=== PATIENT | male | born 1970 | race Caucasian/White ===

== ENCOUNTER 2020-11-08 11:48 | Outpatient (REF) | payer OTHER, SELFPAY | END 2020-11-08 11:49 | disposition home or self-care (01) | LOC: HO.WFDLDS 11:48 | PROVIDERS: Visit Provider Internal Medicine | DX: Z20.828 Contact with and (suspected) exposure to other viral communicable diseases (principal) | CPT/HCPCS: 36415; C9803; U0003 ==

== ENCOUNTER 2024-07-25 13:57 | Outpatient (AMB) | payer OTHER, SELFPAY ==
--- NOTE | 2024-07-25 14:06 | MHC.PC.OV ---
Vital Signs 07/25/24 14:19 Height 5 ft 7.32 in Weight 219 lb 8 oz BMI 34.0 BP 110/74 Blood Pressure Location Rt brachial Position Sitting Respiration 16 Pulse 67 Pulse Source Pulse Oximeter Pulse Oximetry (%) 97 Oxygen Delivery Method Room Air Intake Visit Reasons: Transfer Care from [facility] Intake Note: New patient visit Allergies No Known Allergies Allergy (Verified 07/25/24 14:07) Tobacco use date assessed: 07/25/24 Dental Screening Dental Screen Date: 07/25/24 Did you have a dental visit in the last 12 months?: No Did you have a dental problem in the last 6 months where you did not have access to dental care?: No Was dental information given to patient?: Patient has dentist HPI HPI Comments History of Present Illness Details The patient is a 54-year-old male with a past medical history of psoriasis, polyarthralgia, stress, ED, sleep disorder presenting for follow-up Psoriasis: He was on sotyktu. He then restarted skyrizi. He follows with [facility] Polyarthralgia: Stable. He did injure his ankle last year and saw a [facility]. He has chronic right shoulder pain without injury. It hurts with overhead throwing, abduction, internal rotation. It worsened last year. His hand and fingers were hurting bilaterally. Also complained of chronic bilateral knee pain right over left, right ankle pain. He had not noticed any redness or swelling. He has low back pain which is worse with rotation to much lifting and exercise. CV: He was hesitant to start cholesterol medication. He lost weight and was exercising last year until he injured his ankle. History of low testosterone. On 100 mg sildenafil which is effective for him Colonoscopy 2022 at [facility] CONSTITUTIONAL: Denies weight loss, fever and chills. HEENT: Denies changes in vision and hearing. RESPIRATORY: Denies SOB and cough. CV: Denies palpitations and CP GI: Denies abdominal pain, nausea, vomiting and diarrhea. : Denies dysuria and urinary frequency. MSK: see HPI SKIN: Denies rash and pruritus. NEUROLOGICAL: Denies headache PSYCHIATRIC: Denies recent changes in mood. PHYSICAL EXAM: GENERAL: Alert and oriented x 3. NAD EYES: EOMI. Anicteric. HENT: Moist mucous membranes. No scleral icterus. No cervical lymphadenopathy. LUNGS: Clear to auscultation bilaterally. CARDIOVASCULAR: Regular rate and rhythm. ABDOMEN: Soft, non-tender +bs EXTREMITIES: No edema. Non-tender. SKIN: No rashes or lesions. Warm. NEUROLOGIC: No focal neurological deficits. CN II-XII grossly intact PSYCHIATRIC: Cooperative. Appropriate mood and affect FOR[facility], [facility] Medical History (Updated 07/30/24 @ 10:20 by Shaneka Mitchell MD) ACL (anterior cruciate ligament) tear Stress Sleep disorder Psoriasis Polyarthralgia Obesity, Class I, BMI 30-34.9 Hyperlipemia Erectile dysfunction Surgical History (Updated 07/25/24 @ 14:12 by Ca Vincent CMA) History of colonoscopy Family History (Updated 07/25/24 @ 14:13 by Ca Vincent CMA) Mother Cancer of colon Father Lung cancer Maternal Grandmother Alzheimer dementia Heart disease Paternal Grandmother Alzheimer dementia Social History Housing: House Patient Tobacco Use Status: Never used Tobacco e-Cigarette/Vaping Use: Never Used Second Hand Smoke Exposure: No service: No Current occupational status: employed Current occupation: self employed Current occupational exposures/hazards: No Cognitive needs: No Hearing needs: No Vision needs: Yes (reading glasses) Questionnaire PHQ-9 Over the last 2 weeks, how often have you been bothered by any of the following problems? 1. Little interest or pleasure in doing things: not at all 2. Feeling down, depressed, or hopeless: not at all 3. Trouble falling or staying asleep, or sleeping too much: several days 4. Feeling tired or having little energy: several days 5. Poor appetite or overeating: not at all 6. Feeling bad about yourself - or that you are a failure or have let yourself or your family down: not at all 7. Trouble concentrating on things, such as reading the newspaper or watching television: not at all 8. Moving or speaking so slowly that other people could have noticed. Or the opposite - being so fidgety or restless that you have been moving around a lot more than usual: not at all 9. Thoughts that you would be better off or of hurting yourself in some way: not at all Total score: 2 Depression Screening Interpretation: Positive Depression Screening Done: Yes 33724 - PHQ-9 Billing: Yes Source: Developed by Drs. Dimitrios Navarro, Ana Stewart, Silviano Mcpherson and colleagues, with an educational wood from [employer]. Thrive Questionnaire Date Thrive assessed: 07/25/24 I am a: Patient What is your living situation today?: I have a steady place to live Within the past 12 months, did the food you bought not last and you didn't have the money to get more?: Sometimes True Within the past 12 months, did you worry whether your food would run out before you got money to buy more?: I choose not to answer this question Do you have trouble paying for medicines?: I choose not to answer this question Do you have trouble getting transportation to medical appointments?: No Do you have trouble paying your heating and electricity bill?: I choose not to answer this question Do you have trouble taking care of your child, family member or friend?: No Do you have trouble with day-to-day activities such as bathing, preparing meals, shopping, managing finances, etc.?: No Are you currently unemployed and looking for a job?: No Are you interested in more education?: No Please select the resources that you would like help with: None Currently or been in a relationship where the following occur: I choose not to answer THRIVE Score: 1 AUDIT C Alcohol Use Questionnaire (AUDIT-C) 1. How often do you have a drink containing alcohol?: 2-4 times a month 2. How many drinks containing alcohol do you have on a typical day when you are drinking?: 1 or 2 3. How often do you have six or more drinks on one occasion?: Never Total Score: 2 CORWIN-7 AMB Questionnaire CORWIN-7 Date CORWIN - 7 assessed: 07/25/24 Feeling nervous, anxious, or on edge: 0 = Not at all Not being able to stop or control worryin = Not at all Worrying too much about different things: 1 = Several days Trouble relaxin = Several days Being so restless that it is hard to sit still: 0 = Not at all Becoming easily annoyed or irritable: 0 = Not at all Feeling afraid as if something awful might happen: 0 = Not at all Total CORWIN-7 score (0-4 normal; 5-9 mild; 10-14 moderate; 15-21 severe): 2 Source: Developed by Dennis Betancuret B.W. Terry, Silviano Mcpherson and colleagues, with an educational wood from [employer]. CORWIN-7 Assessment Billing CORWIN-7 Assessment Tool: CORWIN-7 Assessment 97069 Physical exam (Primary Care) Vital Signs: Last Vital Signs Pulse 67 07/25/24 14:19 Resp 16 07/25/24 14:19 BP 110/74 07/25/24 14:19 Pulse Ox 97 07/25/24 14:19 Oxygen Delivery Method Room Air 07/25/24 14:19 BMI result Body Mass Index 34.0 Tobacco/Smoking Status: Tobacco use Status Tobacco use date assessed 07/25/24 07/25/24 14:16 Patient Tobacco Use Status Never used Tobacco 07/25/24 14:16 e-Cigarette/Vaping Use Never Used 07/25/24 14:16 PHQ-9: PHQ-9 Score PHQ-9: Total score 2 07/30/24 10:17 Depression Screening Interpretation: Positive Thrive Assessment: Date of Thrive Assessment Date Thrive assessed 07/25/24 07/25/24 14:16 Currently or been in a relationship where the following occur: I choose not to answer Assessment and Plan Assessment & Plan (1) Psoriasis: Code(s): L40.9 - Psoriasis, unspecified Plan: continue dermatology follow up (2) Polyarthralgia: Code(s): M25.50 - Pain in unspecified joint Plan: Referral to rheumatology for evaluation (3) Right ankle pain: Code(s): M25.571 - Pain in right ankle and joints of right foot Qualifiers: Chronicity: chronic Qualified Code(s): M25.571 - Pain in right ankle and joints of right foot; G89.29 - Other chronic pain Plan: Referral to ortho. Apply topical voltaren Orders: Orders HLA B27 07/28/24 L40.9 - Psoriasis, unspecified, M25.50 - Pain in unspecified joint, M25.571 - Pain in right ankle and joints of right foot Comprehensive Met. Panel 07/28/24 L40.9 - Psoriasis, unspecified, M25.50 - Pain in unspecified joint, M25.571 - Pain in right ankle and joints of right foot Erythrocyte Sedimentation Rate 07/28/24 L40.9 - Psoriasis, unspecified, M25.50 - Pain in unspecified joint, M25.571 - Pain in right ankle and joints of right foot Complete Blood Count Auto Diff 07/28/24 L40.9 - Psoriasis, unspecified, M25.50 - Pain in unspecified joint, M25.571 - Pain in right ankle and joints of right foot Referrals Dermatology Referral L40.9 - Psoriasis, unspecified, M25.50 - Pain in unspecified joint, M25.571 - Pain in right ankle and joints of right foot Rheumatology Referral L40.9 - Psoriasis, unspecified, M25.50 - Pain in unspecified joint, M25.571 - Pain in right ankle and joints of right foot Orthopedics Referral M25.571 - Pain in right ankle and joints of right foot Medications: New diclofenac sodium 1% apply to single knee, ankle, foot; for foot includes sole/toes/top of foot 4 grams topical QID 100 grams 0RF Coding Level of Care Code Est Pt Level 4 (01493) Complex EM visit Add On G2211 Diagnoses Psoriasis L40.9 Polyarthralgia M25.50 Chronic pain of right ankle M25.571; G89.29 Chronicity: chronic Additional Codes CORWIN-7 Assessment Billing - CORWIN-7 Assessment Tool: CORWIN-7 Assessment 56374 ([id number])
[2024-07-25 14:19] VITALS: BP 110/74; PULSE 67; RESP 16; O2SAT 97; BMI 34.0
== END 2024-07-25 14:54 | disposition home or self-care (01) ==
PROVIDERS: PCP Internal Medicine; Visit Provider Internal Medicine
DX: L40.9 Psoriasis, unspecified (principal); M25.50 Pain in unspecified joint; M25.571 Pain in right ankle and joints of right foot; G89.29 Other chronic pain

== ENCOUNTER → 2024-07-25 13:57 | Outpatient (BNVA) | payer OTHER, SELFPAY | PROVIDERS: PCP Internal Medicine; Visit Provider Internal Medicine | DX: L40.9 Psoriasis, unspecified (principal); M25.50 Pain in unspecified joint; G89.29 Other chronic pain; M25.571 Pain in right ankle and joints of right foot | CPT/HCPCS: 96127 ==

== ENCOUNTER 2024-07-28 11:12 | Outpatient (REF) | payer OTHER, SELFPAY ==
[2024-07-28 14:15] LABS: MANUAL DIFF FLAG NO
[2024-07-28 14:18] LABS: Basophils Percent Auto 0.7 % (0-2); Eosinophils Absolute Auto 0.2 X10*3/uL (0.0-0.4); Eosinophils Percent Auto 2.6 % (0-4); Hematocrit 44.5 % (42.0-52.0); Hemoglobin 15.3 g/dl (14.0-18.0); Imm Gran Abs Auto 0.02 X10*3/uL (0.00-0.03); Imm Gran Pct Auto 0.3 % (0.0-0.4); Lymphocytes Absolute Auto 1.8 X10*3/uL (1.2-4.9); Lymphocytes Percent Auto 31.3 % (20-40); Mean Corpuscular HGB Conc 34.4 g/dl (31.0-36.0); Mean Corpuscular Volume 84.3 fL (80.0-98.0); Mean Platelet Volume 9.4 fL (9.4-12.4); Monocytes Absolute Auto 0.4 X10*3/uL (0.1-1.2); Monocytes Percent Auto 6.8 % (2-11); Neutrophils Absolute Auto 3.4 x10*3/uL (2.0-8.3); Neutrophils Percent Auto 58.3 % (45-73); Platelet Count 276 X10*3/uL (160-400); Red Blood Count 5.28 X10*6/uL (4.60-5.80); Red Cell Distribution Width 13.2 % (11.0-16.0); White Blood Count 5.9 X10*3/uL (4.8-10.8)
[2024-07-28 14:44] LABS: Erythrocyte Sedimentation Rate 4 MM/HR (0-15)
[2024-07-28 14:49] LABS: Alanine Aminotransferase 29 U/L (0-40); Albumin Level 4.2 g/dL (3.5-5.0); Alkaline Phosphatase 71 U/L (39-117); Anion Gap 13 (12-20); Aspartate Amino Transferase 22 U/L (5-37); Bilirubin Total 0.7 mg/dL (0.0-1.0); Blood Urea Nitrogen 10 mg/dL (9-16); Calcium 9.5 mg/dL (8.4-10.2); Carbon Dioxide 26 mmol/L (22-29); Chloride 105 mmol/L (96-108); Estimated Glomerular Filt Rate > 60; Glucose Random 113 mg/dL (60-115); Potassium 4.2 mmol/L (3.3-5.1); Sodium 140 mmol/L (135-145); Total Protein 7.4 g/dL (6.5-8.0)
[2024-08-03 21:59] LABS: HLA B27 Negative (Negative)
== END 2024-07-28 11:13 | disposition home or self-care (01) ==
LOC: HO.WFDLDS 11:12
PROVIDERS: Visit Provider Internal Medicine
DX: M25.571 Pain in right ankle and joints of right foot (principal); M25.50 Pain in unspecified joint; L40.9 Psoriasis, unspecified
CPT/HCPCS: 36415; 80053; 85025; 85652; 86812

== ENCOUNTER 2024-09-15 14:50 | Outpatient (AMB) | payer OTHER, SELFPAY ==
[2024-09-15 14:53] VITALS: BP 112/64; BMI 34.3
--- NOTE | 2024-09-15 14:53 | MHC.OFFVIS ---
Vital Signs 09/15/24 14:53 Height 5 ft 7.32 in Weight 221 lb 5.506 oz BMI 34.3 BP 112/64 Blood Pressure Location Lt brachial Position Sitting Intake Visit Reasons: Joint pain/CM Intake Note: Patient presents today with joint pain, internally referred by PCP, Shaneka Mitchell. Allergies No Known Allergies Allergy (Verified 09/15/24 14:55) HPI Comments Details: Patient is a 54-year-old male with psoriasis currently on rizankizumab (IL 23 inhibitor) who is here for evaluation of right ankle pain. 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 The pain was noted on the lateral and medial aspects of his ankle. He denies involvement of any other joint. No prolonged morning stiffness. No dactylitis. No Achilles heel inflammation or enthesitis. No enthesitis involving other entheseal sites. No inflammatory type back pain. He says recently he changed his shoes and added orthotics as as well as got a cushion for his chair and he has noticed improvement in his ankle pain. With respect to his psoriasis he is currently on rizankizumab which is improving his psoriasis. [facility] Medical History (Updated 07/30/24 @ 10:20 by Shaneka Mitchell MD) ACL (anterior cruciate ligament) tear Stress Sleep disorder Psoriasis Polyarthralgia Obesity, Class I, BMI 30-34.9 Hyperlipemia Erectile dysfunction Surgical History (Updated 07/25/24 @ 14:12 by Ca Vincent CMA) History of colonoscopy Family History (Updated 07/25/24 @ 14:13 by Ca Vincent CMA) Mother Cancer of colon Father Lung cancer Maternal Grandmother Alzheimer dementia Heart disease Paternal Grandmother Alzheimer dementia Social History Housing: House Patient Tobacco Use Status: Never used Tobacco e-Cigarette/Vaping Use: Never Used Second Hand Smoke Exposure: No service: No Current occupational status: employed Current occupation: self employed Current occupational exposures/hazards: No Cognitive needs: No Hearing needs: No Vision needs: Yes (reading glasses) Review of Systems Const Details: Review of Systems Constitutional: Denies fever, chills, weight loss ENT: Denies vision changes, eye pain or eye redness, dental caries, dry mouth GI: Denies nausea, vomiting, diarrhea, abdominal pain, change in BM Pulm: Denies SOB, WAGONER, hemoptysis, wheezing Cards: Denies chest pain, palpitations Skin: Denies Raynaud's, rash, nail changes, photosensitivity, [employer]: Denies headaches, weakness, paresthesias, recurrent falls MSK: as per HPI All other systems reviewed and are unremarkable except noted above Physical Exam Vital Signs: Last Vital Signs BP 112/64 09/15/24 14:53 BMI result Body Mass Index 34.3 Physical Examination CONSTITUITIONAL Patient alert and cooperative. Well appearing and in no apparent painful distress HEENT Conjunctiva and sclera clear. ?Pupils equal round and reactive to light. ?No lymphadenopathy. ?Normal dentition. No oral or nasal ulcers noted. No evidence of discoid rash to the diane of ears CHEST/RESPIRATORY SYSTEM Normal respiratory effort and able to speak in complete sentences. ?Clear to auscultation bilaterally. ?No crackles, rales, rhonchi, wheezes heard. CARDIAC SYSTEM Regular rate and rhythm. ?S1 and S2 heard no murmurs. ?Radial pulses intact bilaterally MSK Hands: ?Good field assessor strength bilaterally - 5/5. ?No deformities noted. ?No synovitis noted to the MCPs, PIPs or DIPs. ?No tenderness to palpation of these joints. Wrists: ?Full range of motion at the wrists without pain. ?No tenderness to palpation or synovitis noted to the wrists. Elbows: Full range of motion without pain. No tenderness, weakness, swelling, increased warmth or erythema. Shoulders: Full range of motion without pain. No tenderness, weakness, swelling, increased warmth or erythema. Knees: ?Full range of motion. ?No tenderness, swelling, increased warmth or erythema.?No effusion or crepitations Ankles: Full range of motion. ?No tenderness, swelling, increased warmth or erythema.? Feet: ?Negative squeeze test. ?No tenderness to palpation or swelling of the MTPs. SKIN Skin intact without rashes. Results Reviewed Results Reviewed: Laboratory Tests 07/28/24 11:13 HLA-B27 Negative Assessment & Plan Assessment & Plan (1) Right ankle pain: Code(s): M25.571 - Pain in right ankle and joints of right foot Category: Medical Qualifiers: Chronicity: chronic Qualified Code(s): M25.571 - Pain in right ankle and joints of right foot; G89.29 - Other chronic pain Plan: #Right ankle Pain Patient with right ankle pain on a background of psoriasis. I believe that this ankle pain is not due to psoriatic arthritis and more related to a soft tissue rheumatism which will improve with rest and over time. He does not have any symptoms at this time concerning for psoriatic arthritis but I explained to him that about 20% of patients with psoriasis can develop psoriatic arthritis and I also explained the symptoms for him to monitor for. No further investigations required at this time. (2) Psoriasis: Code(s): L40.9 - Psoriasis, unspecified Category: Medical Plan: #Psoriasis Patient can continue his IL 23 inhibitor. No psoriatic plaques noted on examination. Plan I spent 30 minutes reviewing the record and labs, seeing the patient, discussing the treatment plan and documenting in the medical record ? Coding Level of Care Code New Pt Level 3 (17398) Complex EM visit Add On G2211 Diagnoses Chronic pain of right ankle M25.571; G89.29 Chronicity: chronic Psoriasis L40.9
== END 2024-09-15 15:24 | disposition home or self-care (01) ==
PROVIDERS: PCP Internal Medicine; Visit Provider Student in an Organized Health Care Education/Training Program
DX: M25.571 Pain in right ankle and joints of right foot (principal); G89.29 Other chronic pain; L40.9 Psoriasis, unspecified
CPT/HCPCS: 99203

== ENCOUNTER 2025-02-26 08:24 | Outpatient (AMB) | payer OTHER, SELFPAY ==
--- NOTE | 2025-02-26 08:34 | A.OFFPC_ITS ---
Vital Signs 02/26/25 08:36 Height 5 ft 7.32 in Weight 217 lb 4 oz BMI 33.7 BP 118/86 Blood Pressure Location Lt brachial Position Sitting Respiration 14 Pulse 78 Pulse Source Pulse Oximeter Pulse Oximetry (%) 94 Oxygen Delivery Method Room Air Intake Visit Reasons: Physical Exam Intake Note: Physical Ride Attendant Required: No Allergies No Known Allergies Allergy (Verified 02/26/25 08:35) Tobacco use date assessed: 02/26/25 Dental Screening Dental Screen Date: 02/26/25 Did you have a dental visit in the last 12 months?: No Did you have a dental problem in the last 6 months where you did not have access to dental care?: Yes Was dental information given to patient?: Patient has dentist HPI HPI Comments History of Present Illness Details The patient is a 55-year-old male with a past medical history of psoriasis, polyarthralgia, stress, ED, sleep disorder presenting for CPE Psoriasis: He is on skyrizi. He follows with [facility] Polyarthralgia: Stable. He has chronic right shoulder pain without injury. It hurts with overhead throwing, abduction, internal rotation. It worsened last year. His hand and fingers were hurting bilaterally. Also complained of chronic bilateral knee pain right over left, right ankle pain. He had not noticed any redness or swelling. He has low back pain which is worse with rotation to much lifting and exercise. Saw rheumatology thought that OA CV: He was hesitant to start cholesterol medication. He is due for lipids History of low testosterone. On 100 mg sildenafil which is effective for him Colonoscopy 2022 at [facility]. He has a family history of colon cancer ROS CONSTITUTIONAL: Denies weight loss, fever and chills. HEENT: Denies changes in vision and hearing. RESPIRATORY: Denies SOB and cough. CV: Denies palpitations and CP GI: Denies abdominal pain, nausea, vomiting and diarrhea. : Denies dysuria and urinary frequency. MSK: see HPI SKIN: Denies rash and pruritus. NEUROLOGICAL: Denies headache PSYCHIATRIC: Denies recent changes in mood. PHYSICAL EXAM: GENERAL: Alert and oriented x 3. NAD EYES: EOMI. Anicteric. HENT: Moist mucous membranes. No scleral icterus. No cervical lymphadenopathy. LUNGS: Clear to auscultation bilaterally. CARDIOVASCULAR: Regular rate and rhythm. ABDOMEN: Soft, non-tender +bs : Normal penis and testes EXTREMITIES: No edema. Non-tender. SKIN: No rashes or lesions. Warm. NEUROLOGIC: No focal neurological deficits. CN II-XII grossly intact PSYCHIATRIC: Cooperative. Appropriate mood and affect [facility] Medical History ACL (anterior cruciate ligament) tear Stress Sleep disorder Psoriasis Polyarthralgia Obesity, Class I, BMI 30-34.9 Hyperlipemia Erectile dysfunction Surgical History History of colonoscopy Family History Mother Cancer of colon Father Lung cancer Maternal Grandmother Alzheimer dementia Heart disease Paternal Grandmother Alzheimer dementia Social History Housing: House Alcohol intake: current Patient Tobacco Use Status: Never used Tobacco e-Cigarette/Vaping Use: Never Used Second Hand Smoke Exposure: No service: No Current occupational status: employed Current occupation: self employed Current occupational exposures/hazards: No Cognitive needs: No Hearing needs: No Vision needs: Yes (reading glasses) Questionnaire PHQ-9 Over the last 2 weeks, how often have you been bothered by any of the following problems? 1. Little interest or pleasure in doing things: not at all 2. Feeling down, depressed, or hopeless: not at all 3. Trouble falling or staying asleep, or sleeping too much: not at all 4. Feeling tired or having little energy: not at all 5. Poor appetite or overeating: not at all 6. Feeling bad about yourself - or that you are a failure or have let yourself or your family down: not at all 7. Trouble concentrating on things, such as reading the newspaper or watching television: not at all 8. Moving or speaking so slowly that other people could have noticed. Or the opposite - being so fidgety or restless that you have been moving around a lot more than usual: not at all 9. Thoughts that you would be better off or of hurting yourself in some way: not at all Total score: 0 Depression Screening Interpretation: Negative Depression Screening Done: Yes 73284 - PHQ-9 Billing: Yes Source: Developed by Drs. Dimitrios Navarro, Ana Stewart, Silviano Mcpherson and colleagues, with an educational wood from [employer]. Thrive Questionnaire Date Thrive assessed: 02/19/25 I am a: Patient What is your living situation today?: I choose not to answer this question Within the past 12 months, did the food you bought not last and you didn't have the money to get more?: I choose not to answer this question Within the past 12 months, did you worry whether your food would run out before you got money to buy more?: I choose not to answer this question Do you have trouble paying for medicines?: I choose not to answer this question Do you have trouble getting transportation to medical appointments?: I choose not to answer this question Do you have trouble paying your heating and electricity bill?: I choose not to answer this question Do you have trouble taking care of your child, family member or friend?: I choose not to answer this question Do you have trouble with day-to-day activities such as bathing, preparing meals, shopping, managing finances, etc.?: I choose not to answer this question Are you currently unemployed and looking for a job?: I choose not to answer this question Are you interested in more education?: I choose not to answer this question Please select the resources that you would like help with: None Currently or been in a relationship where the following occur: I choose not to answer THRIVE Score: 0 AUDIT C Alcohol Use Questionnaire (AUDIT-C) 1. How often do you have a drink containing alcohol?: 2-4 times a month 2. How many drinks containing alcohol do you have on a typical day when you are drinking?: 1 or 2 3. How often do you have six or more drinks on one occasion?: Never Total Score: 2 CORWIN-7 AMB Questionnaire CORWIN-7 Date CORWIN - 7 assessed: 02/26/25 Feeling nervous, anxious, or on edge: 0 = Not at all Not being able to stop or control worryin = Not at all Worrying too much about different things: 0 = Not at all Trouble relaxin = Not at all Being so restless that it is hard to sit still: 0 = Not at all Becoming easily annoyed or irritable: 0 = Not at all Feeling afraid as if something awful might happen: 0 = Not at all Total CORWIN-7 score (0-4 normal; 5-9 mild; 10-14 moderate; 15-21 severe): 0 Source: Developed by Drs. Dimitrios Navarro, Ana Stewart, Silviano Mcpherson and colleagues, with an educational wood from [employer]. CORWIN-7 Assessment Billing CORWIN-7 Assessment Tool: CORWIN-7 Assessment 41115 Physical exam (Primary Care) Vital Signs: Last Vital Signs Pulse 78 02/26/25 08:36 Resp 14 02/26/25 08:36 BP 118/86 02/26/25 08:36 Pulse Ox 94 02/26/25 08:36 Oxygen Delivery Method Room Air 02/26/25 08:36 BMI result Body Mass Index 33.7 Tobacco/Smoking Status: Tobacco use Status Tobacco use date assessed 02/26/25 02/26/25 08:35 Patient Tobacco Use Status Never used Tobacco 02/26/25 08:39 e-Cigarette/Vaping Use Never Used 02/26/25 08:39 PHQ-9: PHQ-9 Score PHQ-9: Total score 0 02/26/25 08:43 Depression Screening Interpretation: Negative Thrive Assessment: Date of Thrive Assessment Date Thrive assessed 02/19/25 02/26/25 08:35 Currently or been in a relationship where the following occur: I choose not to answer Coding Level of Care Code Est Pt Prev Care 40-64y(65035) Diagnoses Physical exam Z00.00 Erectile dysfunction, unspecified erectile dysfunction type N52.9 Erectile dysfunction type: unspecified Hyperlipidemia, unspecified hyperlipidemia type E78.5 Hyperlipidemia type: unspecified Psoriasis L40.9 Additional Codes CORWIN-7 Assessment Billing - CORWIN-7 Assessment Tool: CORWIN-7 Assessment 34494 ([id number]) PHQ-9 - 87319 - PHQ-9 Billing: Yes ([id number]) Assessment & Plan Assessment & Plan (1) Physical exam: Code(s): Z00.00 - Encounter for general adult medical examination without abnormal findings Category: Medical (2) Erectile dysfunction: Code(s): N52.9 - Male erectile dysfunction, unspecified Category: Medical Qualifiers: Erectile dysfunction type: unspecified Qualified Code(s): N52.9 - Male erectile dysfunction, unspecified (3) Hyperlipemia: Code(s): E78.5 - Hyperlipidemia, unspecified Category: Medical Qualifiers: Hyperlipidemia type: unspecified Qualified Code(s): E78.5 - Hyperlipidemia, unspecified (4) Psoriasis: Code(s): L40.9 - Psoriasis, unspecified Category: Medical Plan CPE-preventive measures for age discussed. UTD Hyperlipidemia-check lipids ED is stable on prn viagra Orders: Orders Testosterone, Free/Total Today N52.9 - Male erectile dysfunction, unspecified Lipid Panel Today E78.5 - Hyperlipidemia, unspecified Medications: New sildenafil (Viagra) administer 30 minutes to 4 hours before activity 100 mg PO DAILY PRN 30 tabs 3RF sexual activity
[2025-02-26 08:36] VITALS: BP 118/86; PULSE 78; RESP 14; O2SAT 94; BMI 33.7
--- OUTSIDE RECORDS SUMMARY | 2025-02-26 08:46 | XMS_ITS | Clinical Summary ---
Author Organization [employer] Address [address] [place] [address] [address] [place] [address] Care Team Providers Care Director Of Consumer Affairs Name Role Phone Unavailable Primary Care Provider Unavailabl e Allergies No known active allergies Medications Deucravacitinib (SOTYKTU PO) Take by mouth. Active Social History Tobacco Use Types Packs/Day Years Used Date Smoking Tobacco: Never Tobacco Cessation:Counseling Given: Not Answered Sex and Gender Information Value Date Recorded Sex Assigned at Male 09/16/2022 3:51 PM EST Legal Sex Male 3:28 PM EST Gender Identity Male 09/16/2022 3:51 PM EST Sexual Orientation Straight 09/16/2022 3: 51 PM EST Last Filed Vital Signs Vital Sign Reading Time Taken Comments Blood Pressure 120/82 10/13/2022 10:52 AM EST Pulse - - Temperature 36.2 ??C (97.2 ??F) 10/13/2022 10:[address] Respiratory Rate - - Oxygen Saturation - - Inhaled Oxygen Concentration - - Weight - - Height - - Body Mass Index - - Plan of Treatment Health Maintenance Due Date Last Done Comments CT Colonography 1969 Colonoscopy 1969 Colorectal Cancer Screening 1969 Depression Screening 1969 FIT DNA/Cologuard 1969 FIT 1969 FOBT 1969 HIV Screening 1969 Lipid Panel 1969 SDOH Screening 1969 Sigmoidoscopy 1969 Alcohol/Substance Use Screening 1981 Tobacco Screening 1981 Hepatitis C Screening 1987 DTaP/Tdap/Td Vaccines (1 - Tdap) 02/14/1988 Hepatitis B Vaccines (1 of 3 - 19+ 3-dose series) 02/14/1988 Pneumococcal Vaccine: 50+ Ye ars (1 of 1 - PCV) 2019 Zoster Vaccines (1 of 2) 2019 COVID-19 Vaccine (1 - 2023-2 5 season) 2024 Influenza Vaccine (#1) 2024 RSV Patients and Pa tients Aged 60 years or older (1 - 1-dose 75+ series) 02/14/2044 HIB Vaccines Aged Out No longer eligi ble based on patient's age to complete this topic HPV Vaccines Aged Out No longer eligi ble based on patient's age to complete this topic Hepatitis A Vaccines Aged Out No long er eligible based on patient's age to complete this topic IPV Vaccines Aged Out No longer eligi ble based on patient's age to complete this topic Meningococcal Vaccine Aged Out No margarita marko eligible based on patient's age to complete this topic RSV under 20 months Aged Out No longe r eligible based on patient's age to complete this topic Rotavirus Vaccines Aged Out No longer eligible based on patient's age to complete this topic [facility]
== END 2025-02-26 09:16 | disposition home or self-care (01) ==
LOC: HO.HMCFM 08:25
PROVIDERS: PCP Internal Medicine; Visit Provider Internal Medicine
DX: Z00.00 Encounter for general adult medical examination without abnormal findings (principal); N52.9 Male erectile dysfunction, unspecified; E78.5 Hyperlipidemia, unspecified; L40.9 Psoriasis, unspecified

== ENCOUNTER → 2025-02-26 08:24 | Outpatient (BNVA) | payer OTHER, SELFPAY | PROVIDERS: PCP Internal Medicine; Visit Provider Internal Medicine | DX: Z00.00 Encounter for general adult medical examination without abnormal findings (principal); N52.9 Male erectile dysfunction, unspecified; E78.5 Hyperlipidemia, unspecified; L40.9 Psoriasis, unspecified | CPT/HCPCS: 96127 ==